=== PATIENT | female | born 1990 ===

== ENCOUNTER 2024-10-23 13:10 | Emergency (ER) | payer SELFPAY ==
[~2024-10-23] VITALS: Ht 157.5 cm; Wt 54.5 kg
[2024-10-23 13:12] VITALS: BP 122/84; PULSE 102; RESP 20; TEMP 98.2; O2SAT 99
[2024-10-23] MEDS ORDERED: LEVO75 PO (13:15)
== END 2024-10-23 13:17 | disposition left against medical advice (07) ==
LOC: EMS 13:12
DX: F41.9 Anxiety disorder, unspecified (principal); Z53.21 Procedure and treatment not carried out due to patient leaving prior to being seen by health care provider